=== PATIENT | male | born 2000 | race Caucasian/White ===

== ENCOUNTER 2025-09-30 13:28 | Emergency (ER) | payer OTHER, SELFPAY ==
[2025-09-30 13:31] VITALS: BP 132/73; PULSE 89; RESP 18; TEMP 36.7; O2SAT 96; BMI 29.9
--- NOTE | 2025-09-30 13:42 | XRR_ITS ---
PROCEDURE INFORMATION: Exam: XR Left Tibia and Fibula Exam date and time: 09/30/2025 2:00 PM Age: 25 years old Clinical indication: Pain; Lower leg; Left; Additional info: Lt lower leg pain; No new injury; PT states he had a near complete achilles tendon tear x approx 6mo ago-wore boot during healing phase, got released from walking boot x 2 mo ago; Increasing lt lower ext pain since; Discolored/oddly shaped scar to medial lower leg TECHNIQUE: Imaging protocol: Radiologic exam of the left tibia and fibula. Views: 2 views. COMPARISON: No relevant prior studies available. FINDINGS: Bones/joints: Normal alignment. No acute fracture. Soft tissues: Mild generalized superficial soft tissue swelling, nonspecific. XR/XR tibia fibula LT 2V [id number] IMPRESSION: 1. No acute osseous abnormality. 2. Mild generalized superficial soft tissue swelling, nonspecific.
--- NOTE | 2025-09-30 13:54 | ED_ITS ---
HPI - Extremity Problem General: Chief complaint: Extremity Problem,Nontraumatic Stated complaint: Lt leg pain Time Seen by Provider: 09/30/25 13:42 History of Present Illness: 25-year-old male presents emergency room with left lower leg pain posterior aspect. 6 months ago he had a significant soft tissue injury required suturing did not involve his Achilles tendon. Because of the degree of soft tissue injury he was in a walking boot for an extended period of time he was released just recently in the last few days he has increased pain in the back of his leg he is on gabapentin for this. He was seen in the [facility] for this problem previously Associated symptoms: Deny fever(s) Related Data Previous Rx's ?Medication ?Instructions ?Recorded diclofenac sodium 75 mg 75 mg PO Q12H PRN pain #20 t abs 09/30/25 tablet,delayed release Allergies Allergy/AdvReac Type Severity Reaction Status Date / Time Penicillins Allergy Unknown Verified 09/30/25 13:34 Review of Systems Const: Denies: fever(s), chills or body aches Musc: Reports: extremity pain; Denies: extremity swelling Physical Exam Const: COMMON NORMALS: no acute distress GENERAL APPEARANCE: cooperative and comfortable ORIENTATION/CONSCIOUSNESS: Yes awake, Yes oriented to person, Yes oriented to place and Yes oriented to time HENMT: COMMON NORMALS: normocephalic, atraumatic and hearing grossly normal bilaterally HEAD & SCALP: normocephalic and atraumatic Extremity: OTHER: Well-healed soft tissue injury with jagged incision medial posterior aspect of the left lower leg. No signs of infection no drainage no obvious deformity Neuro: SENSORIUM/ORIENTATION: Yes oriented to person, Yes oriented to place and Yes oriented to time Skin: COMMON NORMALS: no rashes or lesions noted GENERAL SKIN EXAM: no rashes or lesions noted Course Vital Signs: Vital signs: Vital Signs Temperature 98.0 F 09/30/25 13:31 Pulse Rate 89 09/30/25 13:31 Respiratory Rate 18 09/30/25 13:31 Blood Pressure 132/73 09/30/25 13:31 Pulse Oximetry 96 09/30/25 13:31 Oxygen Delivery Me thod Room Air 09/30/25 13:31 MDM - Extremity (Nontraumatic) Medical Decision Making X-ray of the left lower leg does not show any acute fractures. On physical exam there is deformity of the skin with the wound that is well-healed appears to heal by secondary intent but there is no open areas no drainage no erythema no induration no palpable fluctuance. Discharged home with diclofenac to use continue the gabapentin he reports that he is on follow-up with his primary care All radiology interpretation(s) finalized by discharge Discharge Plan Discharge Patient Disposition: Home Clinical Impression: Pain in left lower leg Condition: Stable Prescriptions: New diclofenac sodium 75 mg tablet,delayed release (DR/EC) 75 mg PO Q12H PRN (Reason: pain) Qty: 20 0RF Discharge Orders: Discharge ED (Routine); Ordered 09/30/25 Ordered By: Florian Nava Discharge Diet: Usual diet Discharge Activity: Resume usual activity Patient Instructions: Opioid Safety, Pain Management, Patient Portal & Александр Instructions Activity Restrictions/Additional Instructions: Thank you for choosing [facility] for your healthcare needs today. It is very important that you follow up as instructed or that you return to the Emergency Department should you have concerns or if your condition changes or worsens in any way. Emergency department visits are focused on emergent conditions, in some cases you may require further evaluation on an outpatient basis. You were seen in the emergency room with complaints of left lower leg pain from the soft tissue injury. There is no evidence of infection on exam x-ray of your left lower leg does not show any abnormality. He would reported that you were taking gabapentin continue the gabapentin gave prescription for diclofenac to use. Follow-up with your primary care doctor. (Please note that included in your discharge packet is information concerning opioid safety and pain management. This information is given to all patients were discharged from the ER regardless of their discharge diagnosis or the medicines they usually take or are prescribed.) Print Language: Estonian Coding Level of Care Code ED Production Hand for Linus Gannon
== END 2025-09-30 15:07 | disposition home or self-care (01) ==
PROVIDERS: Emergency Provider Family Medicine
DX: M79.605 Pain in left leg (principal)
CPT/HCPCS: 73590; 96372; 99284; J1885